=== PATIENT | female | born 1940 | race Caucasian/White ===

== ENCOUNTER 2016-05-25 21:41 | Observation (INO) | payer OTHER ==
[~2016-05-25] VITALS: Ht 157.5 cm; Wt 75.8 kg
[~2016-05-25 21:41] MED LIST: ADULT LOW DOSE81 M1 PO; ALLEGRA180 MG PO; ALLERGY SHOT SC; ALLERGY SHOTS; ALTACE5 MG PO; ARICEPT5 MG PO; ASPIR 8181 M1 PO; ASPIR-TRIN325 M1 PO; ASPIRIN81 M1 PO; ATROVENT 0.03%30 ML NS; ATROVENT 0.06%15 ML BOTH NARES; Aspirin E.C. PO; CALCITRIOL0.25 MCG PO; CIPRO500 MG PO; COLACE100 MG PO; CYANOCOBAL1000 MCG/2 IM; CYMBALTA60 MG PO; CYTOTEC200 MCG PO; Colace PO; Cymbalta PO; DETROL LA4 MG PO; DIAZEPAM10 MG PO; DONEPEZIL HCL5 M1 PO; DONEPEZIL HCL5 MG PO; DYMISTA NASAL S23 GM BOTH NARES; ERGOCALCIF50000 UNIT PO; FLAGYL500 MG PO; HYDROCHLOROTHIA25 MG PO; HYDROCODON-ACE1 EAC9 PO; KEFLEX500 MG PO; LASIX10 MG PO; LASIX20 MG PO; LEXAPRO20 MG PO; LORTAB 10-3251 EACH PO; Lasix PO; MACROBID100 MG PO; MIRALAX PO; MIRALAX17 GM PO; MIRALAX255 GM PO; MISOPROSTOL200 MCG PO; Miralax, Glycolax PO; NEURONTIN300 MG PO; NEURONTIN400 MG PO; NORCO 10/3251 TABLET PO; NORVASC2.5 MG PO; Neurontin PO; OPANA ER5 MG PO; PLAVIX75 MG PO; PREMARIN0.625 MG PO; ROCALTROL0.25 MCG PO; Rocaltrol PO; ST. JOSEPH ASPI81 MG PO; STOOL SOFTENER100 MG PO; TIZANIDINE HCL4 M1 PO; TRAZODONE HCL50 MG PO; TYLENOL EXTRA500 MG PO; TYLENOL PM1 CAPLET PO; TYLENOL325 M1 PO; VALIUM10 MG PO; VESICARE10 MG PO; VITAMIN D; VITAMIN D5000 UNIT PO; VITAMIN D50000 UNI1 PO; Valium PO; Vicodin,Norco 5/325 PO; Vitamin D, Drisdol PO
[2016-05-25 22:12] LABS: HEMATOCRIT 39.8 % (36.0-46.0); MCH 30.6 PG (29.0-34.0); MCHC 33.2 G/DL (30.0-36.0); MCV 92.1 FL (83-99); MEAN PLAT.VOLUME 11.1 uM^3 (9.5-12.4); PLATELET COUNT 119 K/uL (156-360); RBC DIS.WIDTH-CV 14.3 % (11.8-14.6); RBC DIS.WIDTH-SD 46.4 % (39-53); RED BLOOD COUNT 4.32 M/uL (3.80-5.20); WHITE BLOOD COUNT 5.4 K/uL (4.1-10.2)
[2016-05-25 22:33] LABS: TROP-I INTERPRETATION NEGATIVE; TROPONIN-I < 0.01 ng/mL (0.0-0.30)
[2016-05-25 22:38] LABS: CHLORIDE 104 mEq/L (99-109); POTASSIUM 4.8 mEq/L (3.7-5.4); SODIUM 139 mEq/L (136-147)
[2016-05-25 22:40] LABS: GLUCOSE 78 mg/dL (70-99)
[2016-05-25 22:41] LABS: ANION GAP 13 MEQ/L (2-14)
[2016-05-25 22:44] LABS: GFR ESTIMATE (CALCULATED) 31 mL/min/
[2016-05-25 22:45] LABS: UREA NITROGEN (BUN) 28 mg/dL (9-23)
[2016-05-25] MEDS ORDERED: VALIUM5 MG PO (23:56)
[2016-05-25] MEDS ORDERED: ZYRTEC10 M3 PO (23:56)
[2016-05-25] MEDS ORDERED: ATROVENT H200 INHALA IH (23:56)
[2016-05-25] MEDS ORDERED: TRIAMCINOLONE A15 GM TP (23:57)
[2016-05-26 04:20] LABS: TOTAL BILIRUBIN 0.6 mg/dL (0.0-1.0)
[2016-05-26 04:21] LABS: ALKALINE PHOSPHATASE 66 IU/L (3-129)
[2016-05-26 04:24] LABS: DIRECT BILIRUBIN 0.2 mg/dL (0.0-0.3)
[2016-05-26 06:54] LABS: TROP-I INTERPRETATION NEGATIVE; TROPONIN-I 0.12 ng/mL (0.0-0.30)
[2016-05-26 07:20] VITALS: BP 128/60
[2016-05-26 09:19] LABS: ANION GAP 9 MEQ/L (2-14); CHLORIDE 106 MEQ/L (99-109); GFR ESTIMATE (CALCULATED) 31 mL/min/; POTASSIUM 4.4 MEQ/L (3.7-5.4); SAMPLE HEMOLYSIS CHECK 0; SAMPLE ICTERIC CHECK 0; SAMPLE LIPEMIA CHECK 0; SODIUM 143 MEQ/L (136-147); UREA NITROGEN (BUN) 30 mg/dL (9-23)
[2016-05-26 09:26] LABS: GLUCOSE 98 mg/dL (70-99)
[2016-05-26 13:18] LABS: TROP-I INTERPRETATION NEGATIVE; TROPONIN-I 0.07 ng/mL (0.0-0.30)
[2016-05-26 17:52] VITALS: BP 159/71
[2016-05-26 21:16] VITALS: BP 135/61
[2016-05-27 00:34] VITALS: BP 150/65
[2016-05-27 05:03] VITALS: BP 114/70
[2016-05-27 05:19] VITALS: BP 118/56
[2016-05-27 08:00] VITALS: BP 162/77
[2016-05-27 12:30] VITALS: BP 124/82
[2016-05-27] MEDS ORDERED: NITROSTAT0.4 MG SL (13:33)
== END 2016-05-27 15:40 | disposition home or self-care (01) ==
LOC: EME → EDBD 21:41 → EDOF 05-26 01:55 → 5WEST 05-26 06:54
PROVIDERS: Hospitalist
DX: R00.1 Bradycardia, unspecified (principal); R07.9 Chest pain, unspecified; I12.9 Hypertensive chronic kidney disease with stage 1 through stage 4 chronic kidney disease, or unspecified chronic kidney disease; N18.3 Chronic kidney disease, stage 3 (moderate); I44.7 Left bundle-branch block, unspecified; R55 Syncope and collapse; M54.2 Cervicalgia; M79.601 Pain in right arm; M79.602 Pain in left arm; M25.511 Pain in right shoulder; M25.512 Pain in left shoulder; Z86.73 Personal history of transient ischemic attack (TIA), and cerebral infarction without residual deficits; R29.6 Repeated falls; Z82.49 Family history of ischemic heart disease and other diseases of the circulatory system; Z82.3 Family history of stroke; Z80.42 Family history of malignant neoplasm of prostate; Z91.018 Allergy to other foods; Z88.2 Allergy status to sulfonamides; Z88.5 Allergy status to narcotic agent; Z88.8 Allergy status to other drugs, medicaments and biological substances
CPT/HCPCS: 71020; 80048; 80076; 84484; 85027; 93005; 99202; 99281; 99285; G0378; J0461; J1650; J7030

== ENCOUNTER 2016-09-13 17:38 | Emergency (ER) | payer OTHER ==
[~2016-09-13] VITALS: Ht 157.5 cm; Wt 74.2 kg
[~2016-09-13 17:38] MED LIST changes: +ATROVENT H200 INHALA IH; +NITROSTAT0.4 MG SL; +TRIAMCINOLONE A15 GM TP; +VALIUM5 MG PO; +ZYRTEC10 M3 PO
[2016-09-13 18:32] LABS: HEMATOCRIT 35.9 % (36.0-46.0); MCH 30.9 PG (29.0-34.0); MCHC 33.4 G/DL (30.0-36.0); MCV 92.5 FL (83-99); MEAN PLAT.VOLUME 11.6 uM^3 (9.5-12.4); PLATELET COUNT 135 K/uL (156-360); RBC DIS.WIDTH-CV 14.4 % (11.8-14.6); RBC DIS.WIDTH-SD 48.9 % (39-53); RED BLOOD COUNT 3.88 M/uL (3.80-5.20); WHITE BLOOD COUNT 4.3 K/uL (4.1-10.2)
[2016-09-13 18:41] LABS: CHLORIDE 105 mEq/L (99-109); POTASSIUM 4.3 mEq/L (3.7-5.4); SODIUM 143 mEq/L (136-147)
[2016-09-13 18:43] LABS: GLUCOSE 93 mg/dL (70-99)
[2016-09-13 18:44] LABS: ANION GAP 9 MEQ/L (2-14)
[2016-09-13 18:45] LABS: TOTAL BILIRUBIN 0.4 mg/dL (0.0-1.0)
[2016-09-13 18:46] LABS: ALKALINE PHOSPHATASE 53 IU/L (3-129)
[2016-09-13 18:47] LABS: GFR ESTIMATE (CALCULATED) 33 mL/min/
[2016-09-13 18:48] LABS: UREA NITROGEN (BUN) 29 mg/dL (9-23)
[2016-09-13 19:27] LABS: ADD MIUA? YES; BILIRUBIN NEGATIVE; BLOOD NEGATIVE; COLOR YELLOW ((YELLOW)); GLUCOSE (STRIP) NEGATIVE; KETONES NEGATIVE; LEUKOCYTES LARGE; NITRITE NEGATIVE; PROTEIN (STRIP) NEGATIVE; SPECIFIC GRAVITY 1.012 (1.000-1.030); UROBILINOGEN 0.2 MG/DL (0.2-1.0)
[2016-09-13 19:33] LABS: BACTERIA RARE /HPF; EPITHELIAL CELLS RARE /HPF; HYALINE CASTS 0-5 /LPF; MUCUS TRACE /LPF; RED BLOOD CELLS 0-5 /HPF (0-5); UCUL ADDED? YES; WHITE BLOOD CELLS TNTC /HPF (0-5)
[2016-09-13 22:06] VITALS: BP 129/65
== END 2016-09-13 22:09 | disposition home or self-care (01) ==
LOC: EME 17:38
DX: R10.32 Left lower quadrant pain (principal); K59.00 Constipation, unspecified; R79.89 Other specified abnormal findings of blood chemistry; Z88.8 Allergy status to other drugs, medicaments and biological substances; Z88.5 Allergy status to narcotic agent; Z88.2 Allergy status to sulfonamides; Z91.018 Allergy to other foods; Z86.73 Personal history of transient ischemic attack (TIA), and cerebral infarction without residual deficits; Z87.01 Personal history of pneumonia (recurrent); Z98.1 Arthrodesis status; F03.90 Unspecified dementia, unspecified severity, without behavioral disturbance, psychotic disturbance, mood disturbance, and anxiety; Z90.5 Acquired absence of kidney; Z90.6 Acquired absence of other parts of urinary tract; Z96.641 Presence of right artificial hip joint; Z96.642 Presence of left artificial hip joint; Z90.710 Acquired absence of both cervix and uterus; Z85.830 Personal history of malignant neoplasm of bone
CPT/HCPCS: 74000; 80053; 81003; 85027; 87077; 87086; 87186; 99281; 99284

== ENCOUNTER 2016-10-01 15:56 | Emergency (ER) | payer OTHER ==
[~2016-10-01] VITALS: Ht 157.5 cm; Wt 73.3 kg
[2016-10-01 17:18] LABS: HEMATOCRIT 36.5 % (36.0-46.0); MCHC 33.4 G/DL (30.0-36.0); MCV 92.6 FL (83-99); RBC DIS.WIDTH-CV 14.1 % (11.8-14.6); RBC DIS.WIDTH-SD 48.2 % (39-53); RED BLOOD COUNT 3.94 M/uL (3.80-5.20)
[2016-10-01 17:26] LABS: CHLORIDE 107 mEq/L (99-109); POTASSIUM 5.5 mEq/L (3.7-5.4); SODIUM 136 mEq/L (136-147)
[2016-10-01 17:28] LABS: GLUCOSE 78 mg/dL (70-99)
[2016-10-01 17:29] LABS: ANION GAP 6 MEQ/L (2-14)
[2016-10-01 17:30] LABS: TOTAL BILIRUBIN 0.7 mg/dL (0.0-1.0)
[2016-10-01 17:31] LABS: ALKALINE PHOSPHATASE 88 IU/L (3-129)
[2016-10-01 17:32] LABS: GFR ESTIMATE (CALCULATED) 31 mL/min/
[2016-10-01 17:33] LABS: UREA NITROGEN (BUN) 30 mg/dL (9-23)
[2016-10-01 17:35] LABS: LIPASE 25 U/L (1.0-51.0)
[2016-10-01 17:46] LABS: ADD MIUA? NO; BILIRUBIN NEGATIVE; BLOOD NEGATIVE; COLOR YELLOW ((YELLOW)); GLUCOSE (STRIP) NEGATIVE; KETONES NEGATIVE; LEUKOCYTES NEGATIVE; NITRITE NEGATIVE; PROTEIN (STRIP) NEGATIVE; SPECIFIC GRAVITY 1.012 (1.000-1.030); UROBILINOGEN 0.2 MG/DL (0.2-1.0)
[2016-10-01 18:07] LABS: MEAN PLAT.VOLUME 12.4 uM^3 (9.5-12.4); PLAT.SUFFICIENCY DECREASED
[2016-10-01 18:08] LABS: PLATELET COUNT 67 K/uL (156-360)
[2016-10-01 20:38] VITALS: BP 113/49
== END 2016-10-01 21:34 | disposition home or self-care (01) ==
LOC: EME 15:56
PROVIDERS: Emergency Medicine
DX: R19.7 Diarrhea, unspecified (principal); M79.7 Fibromyalgia; Z86.73 Personal history of transient ischemic attack (TIA), and cerebral infarction without residual deficits
CPT/HCPCS: 74176; 80053; 81003; 83690; 85027; 87086; 99281; 99285; J2405; J3010; J7030

== ENCOUNTER 2016-10-04 16:21 | Emergency (ER) | payer OTHER ==
[~2016-10-04] VITALS: Ht 160 cm; Wt 73.3 kg
[2016-10-04 18:27] LABS: HEMATOCRIT 37.2 % (36.0-46.0); MCH 30.3 PG (29.0-34.0); MCHC 32.8 G/DL (30.0-36.0); MCV 92.3 FL (83-99); MEAN PLAT.VOLUME 10.8 uM^3 (9.5-12.4); RBC DIS.WIDTH-CV 13.7 % (11.8-14.6); RED BLOOD COUNT 4.03 M/uL (3.80-5.20); WHITE BLOOD COUNT 3.9 K/uL (4.1-10.2)
[2016-10-04 18:30] LABS: PLATELET COUNT 108 K/uL (156-360)
[2016-10-04 18:32] LABS: CHLORIDE 105 mEq/L (99-109); SODIUM 139 mEq/L (136-147)
[2016-10-04 18:35] LABS: GLUCOSE 79 mg/dL (70-99); POTASSIUM 4.3 mEq/L (3.7-5.4)
[2016-10-04 18:36] LABS: ANION GAP 8 MEQ/L (2-14)
[2016-10-04 18:37] LABS: TOTAL BILIRUBIN 0.6 mg/dL (0.0-1.0)
[2016-10-04 18:38] LABS: GFR ESTIMATE (CALCULATED) 36 mL/min/
[2016-10-04 18:39] LABS: UREA NITROGEN (BUN) 23 mg/dL (9-23)
[2016-10-04 18:42] LABS: ALKALINE PHOSPHATASE 169 IU/L (3-129)
[2016-10-04 20:36] LABS: LIPASE 17 U/L (1.0-51.0)
[2016-10-04 21:05] LABS: ADD MIUA? YES; BILIRUBIN NEGATIVE; BLOOD SMALL; COLOR YELLOW ((YELLOW)); GLUCOSE (STRIP) NEGATIVE; KETONES NEGATIVE; LEUKOCYTES SMALL; NITRITE NEGATIVE; PROTEIN (STRIP) 30; UROBILINOGEN 0.2 MG/DL (0.2-1.0)
[2016-10-04 21:05] LABS: TROP-I INTERPRETATION NEGATIVE; TROPONIN-I 0.02 ng/mL (0.0-0.30)
[2016-10-04 21:40] LABS: CALCIUM OXALATE CRYSTALS RARE /HPF; CRYSTALS PRESENT; EPITHELIAL CELLS 1+ /HPF
[2016-10-04 21:41] LABS: BACTERIA 3+ /HPF
[2016-10-04 21:42] LABS: MUCUS 1+ /LPF; UCUL ADDED? YES
[2016-10-04] MEDS ORDERED: CIPRO500 MG PO (22:59)
[2016-10-04 23:29] VITALS: BP 130/59
== END 2016-10-05 00:03 | disposition home or self-care (01) ==
LOC: EME 16:21
PROVIDERS: Physician Assistant Medical
DX: R19.7 Diarrhea, unspecified (principal); N39.0 Urinary tract infection, site not specified; F43.20 Adjustment disorder, unspecified; R74.8 Abnormal levels of other serum enzymes; R00.1 Bradycardia, unspecified; Z86.73 Personal history of transient ischemic attack (TIA), and cerebral infarction without residual deficits; Z88.2 Allergy status to sulfonamides; Z88.6 Allergy status to analgesic agent
CPT/HCPCS: 76705; 80053; 81003; 83690; 84484; 85027; 87086; 99281; 99285; J0696; J7040; J7050